=== PATIENT | female | born 1995 | race African-American/Black ===

== ENCOUNTER 2016-08-29 21:48 | Emergency (ER) ==
--- NOTE | 2016-08-29 23:04 | PROVIDER DOCUMENTATION ---
HPI-EENT General - General Chief Complaint: General Adult Stated Complaint: RT EAR INFECTION Time Seen by Provider: 08/29/16 22:58 Source: patient Allergies/Adverse Reactions: Patient Allergies Allergy/AdvReac Type Severity Reaction Status Date / Time No Known Allergies Allergy Verified 08/29/16 22:23 Home Medications: Home Medication List Medication Instructions Recorded Confirmed Last Taken Type Amoxicillin/Pot Clavulanate 875 mg PO Q12HR #20 tablet 08/30/16 Unknown Rx [Augmentin] - History of Present Illness-EENT General Nature of Presenting Problem: 21 y/o BF presents to ED with one day hx of R ear pain, lymphadenopathy. States that she has noted painful lymph nodes to R neck and posterior ear. Denies any inner ear pain, difficulty hearing, d/c. States mild cough, congestion over last several days. Denies any N/V/D/C. States cough productive of yellow/green mucus. Denies fever. Review of Systems - Adult - REVIEW OF SYSTEMS - ADULT Constitutional: reports: no symptoms reported. denies: chills, fever Eyes: reports: no symptoms reported. denies: blurred vision, double vision Ears, Nose, Mouth & Throat: reports: see HPI, ear pain. denies: nose pain, throat pain Cardiovascular: reports: no symptoms reported. denies: chest pain, palpitations Respiratory: reports: see HPI, cough. denies: dyspnea on exertion, shortness of breath Gastrointestinal: reports: no symptoms reported. denies: nausea, vomiting Genitourinary: reports: no symptoms reported. denies: dysuria, frequency Musculoskeletal: reports: no symptoms reported. denies: joint pain, joint swelling Integumentary: reports: no symptoms reported. denies: nail changes, rash Neurological: reports: no symptoms reported. denies: numbness, paresthesia Psychiatric: reports: no symptoms reported Endocrine: reports: no symptoms reported. denies: cold intolerance, heat intolerance Hematologic/Lymphatic: reports: no symptoms reported. denies: easy bruising, prolonged bleeding Allergic/Immunologic: reports: no symptoms reported All Other Systems: Reviewed and Negative Past History - Adult - PAST MEDICAL HISTORY-ADULT Review of Records: reports: Nursing Assessment Review, Medications Reviewed - SOCIAL HISTORY Smoking: denies Alcohol Use Frequency: never Physical Exam- EENT - Physical Exam EENT Initial Vital Signs Reviewed: Yes General Appearance: alert, mild distress Eye Exam: bilateral eye: normal inspection Ear Exam: bilateral ear: auricle normal, canal normal, TM normal Nasal Exam: normal inspection. negative: sinus tenderness Throat Exam: normal mouth inspection, pharynx normal. negative: tonsillar exudate, tonsillar swelling Neck: supple, normal inspection, lymphadenopathy (R cervical lymph swelling, post-auricular lymphadenopathy) Respiratory: lungs clear, normal breath sounds. negative: crackles, rales, rhonchi, stridor, wheezing Cardiovascular: regular rate, rhythm. negative: bradycardia, tachycardia Back Exam: normal inspection Extremity: normal gait Integumentary: normal color, normal turgor, warm/dry Neurologic: negative: aphasia Psych/Mental Status: normal mood/affect, normal thought content, normal thought process, oriented x 3 Progress - PLAN OF CARE/RESULTS Progress/Plan/Lab Results: Laboratory Tests 08/29/16 08/29/16 08/29/16 23:05 23:05 23:05 WBC 6.35 RBC 4.13 L Hgb 12.2 Hct 37.1 MCV 89.8 MCH 29.5 MCHC 32.9 L RDW Std Deviation 11.8 Plt Count 276 MPV 10.0 Immature Gran % (Auto) 0.0 Neut % (Auto) 28.0 L Lymph % (Auto) 55.6 H Ashley % (Auto) 12.9 H Eos % (Auto) 3.0 Baso % (Auto) 0.5 Immature Gran # (Auto) 0.00 Neut # (Auto) 1.78 Lymph # (Auto) 3.53 H Ashley # (Auto) 0.82 H Eos # (Auto) 0.19 Baso # (Auto) 0.03 Sodium 139 Potassium 4.6 Chloride 102 Carbon Dioxide 28 Anion Gap 9 BUN 16 Creatinine 0.7 Estimated GFR/1.73 m2 > 60 BUN/Creatinine Ratio 23 Glucose 112 H Calculated Osmolality 279 Calcium 9.2 Total Bilirubin 0.12 L AST 38 H ALT 54 H Alkaline Phosphatase 87 Total Protein 6.8 Albumin 3.9 Globulin 2.9 Albumin/Globulin Ratio 1.3 Monoscreen NEGATIVE Orders Category Date Time Status CBC WITH ELECTRONIC DIFF [HEME] Stat Lab 08/29/16 23:05 Completed CMP [COMPREHENSIVE METABOLIC PANEL] [CHEM] Stat Lab 08/29/16 23:05 Completed DIRECT STREP Stat Lab 08/29/16 23:00 Completed MONO SCREEN [SERO] Stat Lab 08/29/16 23:05 Received Amoxicillin [Amoxil] Med 08/30/16 00:23 Discontinued 750 mg PO NOW ONE Vital Signs Temp Pulse Resp BP Pulse Ox 08/29/16 21:57 97.9 F 103 H 16 121/74 99 No Known Allergies Allergy (Verified 08/29/16 22:23) No Home Medications 08/29/16 Laboratory 08/29/16 08/29/16 08/29/16 23:05 23:05 23:05 WBC 6.35 RBC 4.13 L Hgb 12.2 Hct 37.1 MCV 89.8 MCH 29.5 MCHC 32.9 L RDW Std Deviation 11.8 Plt Count 276 MPV 10.0 Immature Gran % (Auto) 0.0 Neut % (Auto) 28.0 L Lymph % (Auto) 55.6 H Ashley % (Auto) 12.9 H Eos % (Auto) 3.0 Baso % (Auto) 0.5 Immature Gran # (Auto) 0.00 Neut # (Auto) 1.78 Lymph # (Auto) 3.53 H Ashley # (Auto) 0.82 H Eos # (Auto) 0.19 Baso # (Auto) 0.03 Sodium 139 Potassium 4.6 Chloride 102 Carbon Dioxide 28 Anion Gap 9 BUN 16 Creatinine 0.7 Estimated GFR/1.73 m2 > 60 BUN/Creatinine Ratio 23 Glucose 112 H Calculated Osmolality 279 Calcium 9.2 Total Bilirubin 0.12 L AST 38 H ALT 54 H Alkaline Phosphatase 87 Total Protein 6.8 Albumin 3.9 Globulin 2.9 Albumin/Globulin Ratio 1.3 Monoscreen NEGATIVE Discussed pt with Dr. Varner. Discussed findings with pt and f/u. Departure - Departure Time of Disposition Order: 00:49 DIAGNOSIS: Lymphadenopathy URI (upper respiratory infection) Qualifiers: URI type: unspecified URI Qualified Code(s): J06.9 - Acute upper respiratory infection, unspecified Disposition: HOME 01 Certified Medical Emergency: Emergent Condition: Stable Additional Instructions: Take medications as directed. Follow up with PCP for further evaluation if symptoms persist. ED Follow Up Instructions: You have been treated by a care provider in the Emergency Department. These instructions are being provided to you so you can have an understanding of how to care for yourself upon discharge. Upon discharge from the Emergency Department, you are responsible for making arrangements for follow-up care by a physician of your choice. Take all prescribed medications as directed. Return to the Emergency Department immediately for any new or worsening symptoms. You may call the Physician Referral phone number at [phone] to obtain a list of Physicians who are taking new patients. Prescriptions: Amoxicillin/Pot Clavulanate [Augmentin] 875 mg PO Q12HR #20 tablet Referrals: Roger Villanueva MD [Primary Care Provider] - Attestation - Physician/ [facility] Attestation Patient care was provided by Advanced Practice Provider:: Yes Advanced Practice Provider:: Risa Berkowitz Advanced Practice Provider documentation review:: The Mid-level provider documentation, treatment plan and medical decision making was reviewed by the physician who agrees with all treatment and medical decision making by the MLP.
[2016-08-29 23:17] LABS: MANUAL DIFF NEEDED? NO
[2016-08-29 23:36] LABS: BASO% 0.5 % (0.0-0.8); EOS# 0.19 X1000 (0.0-0.7); HEMATOCRIT 37.1 % (37.0-47.0); HEMOGLOBIN 12.2 g/dL (12.0-16.0); LYMPH# 3.53 X1000 (1.2-3.4); LYMPH% 55.6 % (20.5-51.1); MCH 29.5 PG (27-31); MCHC 32.9 g/dL (33-37); MCV 89.8 FL (81-99); MONO# 0.82 X1000 (0.11-0.59); MONO% 12.9 % (1.7-9.3); PLT 276 X1000 (130-400); RBC 4.13 XMIL (4.2-5.4)
[2016-08-29 23:52] LABS: AGAP 9; ALBUMIN 3.9 g/dL (3.5-5.0); ALKALINE PHOSPHATASE 87 U/L (32-104); BUN 16 mg/dL (8-22); CALCIUM 9.2 mg/dL (8.8-10.2); CHLORIDE 102 mmol/L (98-107); COSMO 279; GOT 38 U/L (10-30); GPT 54 U/L (10-36); POTASSIUM 4.6 mmol/L (3.5-5.1); SODIUM 139 mmol/L (136-145); TCO2 28 mmol/L (25-35); TOTAL BILIRUBIN 0.12 mg/dL (0.20-1.00); TOTAL PROTEIN 6.8 g/dL (6.3-8.3)
[2016-08-30] MEDS ORDERED: AMOXIL PO ONE (00:23)
[2016-08-30 01:13] VITALS: BP 117/84
== END 2016-08-30 01:13 | disposition home or self-care (01) ==
LOC: ED 21:48
DX: J06.9 Acute upper respiratory infection, unspecified (principal); R59.0 Localized enlarged lymph nodes; H92.01 Otalgia, right ear; M54.2 Cervicalgia; R05 Cough; R09.81 Nasal congestion; R09.3 Abnormal sputum
CPT/HCPCS: 36415; 80053; 85025; 86308; 87081; 87430; 99283